=== PATIENT | male | born 2000 | race Caucasian/White ===

== ENCOUNTER 2024-06-13 08:40 | Outpatient (CLI) | payer OTHER, SELFPAY ==
[2024-06-13 19:21] LABS: Basophils Absolute Auto 0.1 K/mm3 (0.0-0.1); Basophils Percent Auto 0.7 % (0.2-1.2); Eosinophils Absolute Auto 0.2 K/mm3 (0-0.3); Eosinophils Percent Auto 3.2 % (0-4.4); Hematocrit 47.5 % (42.0-52.0); Hemoglobin 14.9 g/dL (14.0-18.0); Immature Granulocyte Absolute 0.02 K/mm3 (0.00-0.031); Immature Granulocyte Percent A 0.3 % (0-0.5); Lymphocytes Absolute Auto 1.74 K/mm3 (0.9-3.2); Lymphocytes Percent Auto 25.5 % (18.3-44.2); Mean Corpuscular HGB Conc 31.4 g/dl (32-36); Mean Corpuscular Volume 95.6 fl (80-100); Mean Platelet Volume 11.9 fl (7.4-10.4); Monocytes Absolute Auto 0.6 K/mm3 (0.1-0.6); Monocytes Percent Auto 9.1 % (2.6-8.5); Neutrophils Absolute Auto 4.2 K/mm3 (1.3-6.7); Neutrophils Percent Auto 61.2 % (45.5-73.1); Platelet Count Result 277 k/mm3 (150-375); Red Blood Count 4.97 M/mm3 (4.6-6.20); Red Cell Distribution Width 13.4 % (11.5-14.5); White Blood Count 6.8 K/mm3 (4.5-10.0)
[2024-06-13 20:07] LABS: Vitamin D 25 Hydroxy 54.6 ng/mL
[2024-06-13 20:38] LABS: Alanine Aminotransferase 50 U/L (6-50); Albumin Level 4.6 g/dL (3.5-5.1); Alkaline Phosphatase 51 U/L (38-126); Anion Gap 7 mmol/L (4-12); Aspartate Amino Transferase 61 U/L (17-59); Bilirubin,Total 0.6 mg/dL (0.2-1.3); Blood Urea Nitrogen 18 mg/dL (9-20); Calcium 9.5 mg/dL (8.4-10.2); Carbon Dioxide 28 mmol/L (22-30); Chloride 103 mmol/L (98-107); Cholesterol 145 mg/dL (0-200); Estimated Glomerular Filt Rate > 60; Glucose 74 mg/dL (65-110); HDL Direct 55 mg/dL; Potassium 3.9 mmol/L (3.4-5.0); Sodium 138 mmol/L (137-145); Triglycerides 54 mg/dL (<150)
[2024-06-13 20:51] LABS: LDL Cholesterol Direct 69 mg/dL
== END 2024-06-13 08:41 | disposition home or self-care (01) ==
LOC: ANHGOSHLAB 08:41
PROVIDERS: PCP Nurse Practitioner Family; Visit Provider Nurse Practitioner Family
DX: Z00.00 Encounter for general adult medical examination without abnormal findings (principal); Z13.220 Encounter for screening for lipoid disorders; E55.9 Vitamin D deficiency, unspecified
CPT/HCPCS: 36415; 80053; 80061; 82306; 84443; 85025